=== PATIENT | female | born 1965 ===

== ENCOUNTER 2016-06-21 18:45 | Emergency (ER) | payer OTHER | END 2016-06-21 19:08 | disposition left against medical advice (07) | LOC: ED 18:45 | DX: S09.90XA Unspecified injury of head, initial encounter (principal); X58.XXXA Exposure to other specified factors, initial encounter; Y93.89 Activity, other specified; Y99.9 Unspecified external cause status; Y92.89 Other specified places as the place of occurrence of the external cause; Z53.21 Procedure and treatment not carried out due to patient leaving prior to being seen by health care provider ==